=== PATIENT | male | born 1960 | race Caucasian/White ===

== ENCOUNTER → 2017-10-14 | Outpatient (CLI) | payer OTHER ==
[~2017-10-14] MED LIST: ATORVASTATIN CA20 MG PO; MOTRIN600 MG PO; PROTONIX20 MG PO
== END | disposition home or self-care (01) ==
LOC: NUC 09:40
DX: M17.12 Unilateral primary osteoarthritis, left knee (principal)
CPT/HCPCS: 78306; A9503